=== PATIENT | female | born 1975 | race Caucasian/White ===

== ENCOUNTER 2018-06-07 19:33 | Emergency (ER) | payer BC, OTHER ==
[2018-06-07] MEDS ORDERED: Morphine 4 MG/ML VIAL ONE ×2 (20:03→21:37)
[2018-06-07] MEDS ORDERED: Ondansetron PF 4 MG/2 ML Vial ONE (20:03)
[2018-06-07 20:09] LABS: Hemoglobin 11.8 g/dL (12.0-16.0); Mean Corpuscular HGB CONC 31.8 g/dL (32.0-36.0); Mean Corpuscular Hemoglobin 25.4 pg (27.0-31.0); Mean Corpuscular Volume 79.8 fL (78.0-98.0); Mean Platelet Volume 9.6 fL (7.4-10.4); Platelet Count 163 thou/uL (130-400); RBC Distribution Width 13.7 % (11.5-14.5); Red Blood Cell (RBC) Count 4.65 mill/uL (4.20-5.40); White Blood Cell (WBC) Count 11.2 thou/uL (4.8-10.8)
[2018-06-07 20:13] LABS: BHCG - Serum Negative (NEGATIVE); Pregs Control Background? CLEAR/WHITE (CLR/WHITE); Pregs Control Bar Appear? YES (CONTROL BAR)
[2018-06-07 20:26] LABS: Lymphocytes 15 % (21-51); MDiff Complete? YES; Monocytes 4 % (0-10); Neutrophil 81 % (42-75); Platelet Morphology Comment PLT clumps seen-ADEQ
[2018-06-07 20:32] LABS: ALT (SGPT) 22 U/L (8-55); AST (SGOT) 34 U/L (5-34); Albumin 4.5 g/dL (3.5-5.0); Alkaline Phosphatase 91 U/L (40-150); Anion Gap 19 mmol/L (10-20); BUN (Urea Nitrogen) 11 mg/dL (7.0-18.7); Bilirubin, Total 0.5 mg/dL (0.2-1.2); Calc. Creatinine Clearance 0 mL/min (70-130); Carbon Dioxide 20 mmol/L (22-29); Chloride 102 mmol/L (98-107); Estimated GFR-MDRD 61; Globulin 3.7 g/dL (2.4-3.5); Glucose 124 mg/dL (70-105); Lipase 24 U/L (8-78); Potassium 4.5 mmol/L (3.5-5.1); Protein, Total 8.2 g/dL (6.0-8.3); Sodium 136 mmol/L (136-145)
--- NOTE | 2018-06-07 20:52 | ULT ---
FEXAM: Right upper quadrant ultrasound PROVIDED CLINICAL HISTORY: Pain COMPARISON: None FINDINGS: The visualized portions of the pancreas appear normal. The liver demonstrates no mass or intrahepatic biliary ductal dilatation. The common duct is nondilated. The gallbladder demonstrates no stones, wa ll thickening or pericholecystic fluid. Right kidney demonstrates no evidence for hydronephrosis or m ass. IMPRESSION: Unremarkable right upper quadrant ultrasound.
[2018-06-07] MEDS ORDERED: Lidocaine Viscous Sol 2% 15 ml UD Cup ONE (21:07)
[2018-06-07] MEDS ORDERED: Mag-Al 1200 mg/1200 mg/30 ML UDCUP ONE (21:07)
== END 2018-06-07 21:59 | disposition home or self-care (01) ==
LOC: ERS 19:33
DX: R10.13 Epigastric pain (principal)
CPT/HCPCS: 76705; 80053; 83690; 84703; 85025; 93005; 96361; 96374; 96375; 96376; J2270; J2405